=== PATIENT | female | born 1960 | race African-American/Black ===

== ENCOUNTER 2019-11-09 03:17 | Emergency (ER) | payer MEDICAID ==
[~2019-11-09] VITALS: Ht 160 cm; Wt 75.0 kg
[2019-11-09 03:21] VITALS: BP 167/76
[2019-11-09] MEDS ORDERED: ceFAZolin 1gm IM kit IM ONE (03:55)
[2019-11-09] MEDS ORDERED: CEPH500C5 PO (03:55)
== END 2019-11-09 03:58 | disposition home or self-care (01) ==
LOC: ER 03:18
DX: L03.012 Cellulitis of left finger (principal); F10.99 Alcohol use, unspecified with unspecified alcohol-induced disorder; Z79.899 Other long term (current) drug therapy; Y90.9 Presence of alcohol in blood, level not specified
CPT/HCPCS: 96372; 99283; J0690